=== PATIENT | female | born 1955 | race Caucasian/White ===

== ENCOUNTER 2016-12-21 12:30 | Emergency (ER) | payer OTHER ==
[2016-12-21] MEDS ORDERED: PROPARACAINE 0.5% OPHTH DROPS 15 ML ONE (12:44)
[2016-12-21] MEDS ORDERED: ERYTHROMYCIN OPHTH OINT 1 GM TUBE LEFTEYE STA (13:14)
[2016-12-21] MEDS ORDERED: PROPARACAINE 0.5% OPHTH DROPS 15 ML LEFTEYE STA (13:14)
--- NOTE | 2016-12-21 13:18 | ED Physician Documentation ---
PD HPI OPHTHO - Stated complaint Stated Complaint: L EYE PX - Chief complaint Chief Complaint: Heent - History obtained from History obtained from: Patient - History of Present Illness Timing - onset: Other (Foreign body sensation to the left eye last night and worsening pain today with some light sensitivity, but no significant visual change. She is not a contact lens wear.) Review of Systems Constitutional: denies: Fever, Chills Eyes: reports: Photophobia, Discharge, Irritation. denies: Loss of vision, Decreased vision Ears: denies: Loss of hearing, Ear pain Nose: reports: Rhinorrhea / runny nose PD PAST MEDICAL HISTORY - Past Medical History Past Medical History: No - Past Surgical History Past Surgical History: Yes - Present Medications Home Medications: Ambulatory Orders Medication Instructions Recorded Confirmed No Known Home Medications [No 12/21/16 12/21/16 Known Home Medications] - Allergies Allergies/Adverse Reactions: Allergies Allergy/AdvReac Type Severity Reaction Status Date / Time cephalexin monohydrate * Allergy Nausea Verified 12/21/16 12:40 [From Keflex] - Social History Does the pt smoke?: No Smoking Status: Never smoker Does the pt drink ETOH?: Yes Does the pt have substance abuse?: No - Immunizations Immunizations: TDAP >10years/unknown PD ED PE NORMAL - Vitals Vital signs reviewed: Yes - General General: Alert and oriented X 3, No acute distress - HEENT HEENT: PERRL, EOMI, Other (Left eye looks grossly normal with midpoint reactive pupils, on fluorescein examination there are innumerable vertical linear scratches on the superior part of the cornea consistent with a corneal foreign body in the upper fornix. However repeated examination of that area did not demonstrate a foreign body. Tyron-Pen pressure was borderline at 28. She had complete relief with proparacaine.) - Neck Neck: Supple, no meningeal sign, No bony TTP - Neuro Neuro: Alert and oriented X 3, Normal speech Results - Vitals Vitals: Vital Signs - 24 hr 12/21/16 12/21/16 12:37 13:25 Temperature 36.8 C Heart Rate 72 77 Respiratory 18 18 Rate Blood Pressure 159/82 H 144/82 H O2 Saturation 100 100 Departure - Departure Disposition: 01 Home, Self Care Clinical Impression: Corneal abrasion Qualifiers: Encounter type: initial encounter Laterality: left Qualified Code(s): S05.02XA - Injury of conjunctiva and corneal abrasion without foreign body, left eye, initial encounter Condition: Good Record reviewed to determine appropriate education?: Yes Instructions: ED Eye Injury Corneal Abrasion Comments: Put the antibiotic in 5 times a day for the next few days. Return if not better in 24 hours. Otherwise follow-up with your eye doctor in 2 weeks as scheduled, mentioned to him/her that you have borderline eye pressures in the mid 20s and this mandates a recheck. Your blood pressure was elevated today on check into the emergency department. This does not mean that you have hypertension, it is a common phenomenon to come to the emergency department and have elevated blood pressure. I recommend that she see her primary care physician within the week to have it rechecked when you are feeling better. Discharge Date/Time: 12/21/16 13:25
[2016-12-21] MEDS ORDERED: ERYTHROMYCIN OPHTH OINT 1 GM TUBE ONE ×2 (13:19)
[2016-12-21 13:26] VITALS: BP 144/82
== END 2016-12-21 13:25 | disposition home or self-care (01) ==
LOC: ED 12:30
DX: S05.02XA Injury of conjunctiva and corneal abrasion without foreign body, left eye, initial encounter (principal); X58.XXXA Exposure to other specified factors, initial encounter
CPT/HCPCS: 99283; J3490

== ENCOUNTER 2020-12-13 11:30 | Outpatient (CLI) | payer MEDICARE, OTHER ==
--- NOTE | 2020-12-13 13:00 | DEXA Report ---
PROCEDURE: Dexa Spine and/or Hip INDICATIONS: OSTEOPOROSIS TECHNIQUE: Dual energy x-ray absorptiometry (DXA) was performed on a CITIA System. Regions measur ed are the AP Spine, femoral neck, and if needed forearm. COMPARISON: None. FINDINGS: Lumbar Spine: Bone Mineral Density 1.147 g/cm/cm,T score -0.3, normal Left Hip: Bone Mineral Density 0.972 g/cm/cm,T score -0.3, normal Left Femoral Neck: Bone Mineral Density 0.872 g/cm/cm, T score -1.2, osteopenia (T score greater or equal to -1.0: NORMAL) (T score from -1.1 to -2.4: OSTEOPENIA) (T score less than or equal to -2.5 to: OSTEOPOROSIS) Impression: Normal bone mineral density at the lumbosacral spine and left hip overall but there is mi ld osteopenia at the left femoral neck. Patients with diagnosis of osteoporosis or osteopenia should have regular bone mineral density assess ment. For those eligible for Medicare, routine testing is allowed once every 2 years. Testing frequ ency can be increased for patients who have rapidly progressing disease or for those who are receivin g medical therapy to restore bone mass. Reviewed by: Kurt Clinton MD on 12/13/2020 12:59 PM PDT Approved by: Kurt Clinton MD on 12/13/2020 12:59 PM PDT Station ID: [id number]
== END 2020-12-13 11:31 | disposition home or self-care (01) ==
LOC: DI 11:30
PROVIDERS: ATTEND Family Medicine
DX: Z13.820 Encounter for screening for osteoporosis (principal); M85.88 Other specified disorders of bone density and structure, other site

== ENCOUNTER 2021-09-13 11:58 | Emergency (ER) | payer MEDICARE ==
--- OUTSIDE RECORDS SUMMARY | 2021-09-13 12:18 | EXTERNAL MEDICAL SUMMARY RPT | Continuity of Care Document ---
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 Encounters No information. Medications No information. Problems date description facility [id number] Unspecified fall, initial encounter [facility] [place] [id number] Unspecified fall [facility] Care & Ancillary [facility] [id number] Tobacco smoking status NHIS [facility] Primary Care & Ancillary Services [facility] [id number] Other abnormalities of gait and [facility] [id number] Fall [facility] Care & Ancillary Services [facility] [id number] Exercise [facility] Care & Ancillary Services [facility] [id number] Details of drug misuse behavior [facility] [id number] Alcohol use [facility] Care & Ancillary Services [facility] [id number] Abnormality of gait [facility] Care & Ancillary Services [facility] [id number] Abnormal gait due to impairment of [facility] Primary Care & balance Ancillary Services [facility] Results No information. Vital Signs date measurement value source [id number] weight_standard 162 lb [id number] weight_metric 73.48 kg [id number] temperature_standard 97.7 F [id number] temperature_metric 36.5 C 20210912 respiration_rate 16 /min [id number] height_standard 67 in [id number] height_metric 170.18 cm [id number] heart_rate 77 /min [id number] BP_systolic 150 mm[Hg] [id number] BP_diastolic 87 mm[Hg] [id number] BMI 25.46 kg/m2
--- NOTE | 2021-09-13 12:30 | ED Physician Documentation ---
History of Present Illness - Stated complaint Stated Complaint: VERTIGO - Chief complaint Chief Complaint: Neuro - History obtained from History obtained from: Patient - History of Present Illness Timing: Today Pain level max: 0 Pain level now: 0 - Additonal information Additional information: Patient is a 66-year-old female who presents to the emergency department complaint of near syncope 2 days ago. She states that she was walking back from the bathroom when she nearly fell to the floor. She states she did not lose consciousness. No chest pain or shortness of breath, but since that time she has felt off balance and has had trouble walking. She states it feels like prior episodes of vertigo. Worse with movement, better with rest. No headache. No nausea or vomiting Review of Systems Constitutional: denies: Fever Nose: denies: Rhinorrhea / runny nose, Congestion Throat: denies: Sore throat Respiratory: denies: Dyspnea, Cough GI: denies: Abdominal Pain, Nausea, Vomiting, Diarrhea : denies: Dysuria Skin: denies: Rash Musculoskeletal: denies: Neck pain, Back pain Neurologic: denies: Focal weakness, Numbness, Seizure, Confused PD PAST MEDICAL HISTORY - Past Medical History Past Medical History: No - Past Surgical History Past Surgical History: Yes - Present Medications Home Medications: Ambulatory Orders Medication Instructions Recorded Confirmed No Known Home Medications 12/21/16 09/13/21 - Allergies Allergies/Adverse Reactions: Allergies Allergy/AdvReac Type Severity Reaction Status Date / Time cephalexin monohydrate * Allergy Nausea Verified 09/13/21 12:06 [From Imonomi] - Living Situation Living Situation: reports: With family Living Arrangement: reports: At home - Social History Does the pt smoke?: No Smoking Status: Never smoker Does the pt drink ETOH?: Yes Does the pt have substance abuse?: No - Immunizations Immunizations: TDAP >10years/unknown PD ED PE NORMAL - Vitals Vital signs reviewed: Yes - General General: Alert and oriented X 3, No acute distress - HEENT HEENT: Atraumatic, PERRL, Moist mucous membranes - Neck Neck: Supple, no meningeal sign, No bony TTP - Cardiac Cardiac: RRR, Strong equal pulses - Respiratory Respiratory: No respiratory distress, Clear bilaterally - Abdomen Abdomen: Soft, Non tender, Non distended - Derm Derm: Warm and dry - Extremities Extremities: No edema, No calf tenderness / cord - Neuro Neuro: Alert and oriented X 3, 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, No motor deficit, No sensory deficit, Normal speech, Other (normal cerebellar tests, off balance gait.) - Psych Psych: Normal mood, Normal affect Results - Vitals Vitals: Vital Signs - 24 hr 09/13/21 09/13/21 12:07 14:14 Temperature 36.6 C Heart Rate 64 72 Respiratory 19 12 Rate Blood Pressure 186/85 H 135/85 H O2 Saturation 100 100 Oxygen O2 Source Room air - EKG (time done) 1228 Rate: Rate (enter#) (67) Rhythm: NSR [place]: Normal Intervals: Normal [place] QRS: Normal, LVH Ischemia: T wave inversion (III) - Labs Labs: Laboratory Tests 09/13/21 09/13/21 09/13/21 12:36 12:36 12:36 WBC 5.9 RBC 4.48 Hgb 13.7 Hct 41.4 MCV 92.4 MCH 30.6 MCHC 33.1 RDW 12.8 Plt Count 215 MPV 10.4 Neut # (Auto) 4.1 Lymph # (Auto) 1.4 L [place] # (Auto) 0.3 Eos # (Auto) 0.0 Baso # (Auto) 0.0 Absolute Nucleated RBC 0.00 Nucleated RBC % 0.0 Sodium 139 Potassium 4.4 Chloride 100 L Carbon Dioxide 28 Anion Gap 11.0 BUN 17 Creatinine 0.8 Estimated GFR (MDRD) 71 L Glucose 101 H Calcium 9.5 Total Bilirubin 0.9 AST 38 ALT 22 Alkaline Phosphatase 56 Troponin I High Sens 4.4 Total Protein 7.1 Albumin 4.1 Globulin 3.0 Albumin/Globulin Ratio 1.4 Lipase 28 - Rads (name of study) CTA head Radiology: Final report received, EMP read contemporaneously, See rad report CTA neck Radiology: Final report received, EMP read contemporaneously, See rad report MRI brain Radiology: Final report received, EMP read contemporaneously, See rad report PD MEDICAL DECISION MAKING - ED course Complexity details: reviewed results, re-evaluated patient, considered differential, d/w patient ED course: 66-year-old female with near syncope and vertigo. No nystagmus on exam. concern for potential posterior stroke. CT angiogram head and neck did not show any acute abnormalities. MRI of the brain does not show any abnormalities. Does have a partially opacified left vallecula, she will follow up with the ENT for this. Patient is ambulating well in the emergency department. No significant lab abnormalities. She will trial meclizine at home and see if this helps her symptoms. Patient counseled regarding signs and symptoms for which I believe and urgent re-evaluation would be necessary. Patient with good understanding of and agreement to plan and is comfortable going home at this time This document was made in part using voice recognition software. While efforts are made to proofread this document, sound alike and grammatical errors may occur. NIH stroke scale of 0 CT angiogram head: IMPRESSION: 1. No acute intracranial disease process. 2. No large vessel occlusion, vascular stenosis, vascular dissection or aneurysm. CT Angiogram neck: IMPRESSION: 1. No vascular occlusion, vascular stenosis, vascular dissection or aneurysm. 2. 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 3. Partially opacified left vallecula. Recommend correlation with direct visualization to exclude mucosal-based mass. MRI Brain: IMPRESSION: Age-appropriate findings. Age-related volume loss and mild small vessel ischemic change. No evidence acute stroke, image, or mass. Departure - Departure Disposition: 01 Home, Self Care Clinical Impression: Vertigo Condition: Good Instructions: Meclizine, ED Vertigo Unspecified Follow-Up: CATHERINE PARNELL MD [Primary Care Provider] - Within 1 week Comments: Please follow-up with your doctor for further care. Return if you worsen. You can try meclizine at home to help with your vertigo symptoms. Your CT angiogram of your head and neck do not show any acute abnormalities, your brain MRI does not show any acute abnormalities either. You do have a partially opacified area in the left vallecula, this is in your throat, your doctor can refer you to ENT for a visual inspection of the area. You also have a short segment fibromuscular dysplasia of the middle cervical segments of the internal carotid arteries bilaterally, you can follow-up with your doctor regarding this as well. CT angiogram head: IMPRESSION: 1. No acute intracranial disease process. 2. No large vessel occlusion, vascular stenosis, vascular dissection or aneurysm. CT Angiogram neck: IMPRESSION: 1. No vascular occlusion, vascular stenosis, vascular dissection or aneurysm. 2. 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 3. Partially opacified left vallecula. Recommend correlation with direct visualization to exclude mucosal-based mass. MRI Brain: IMPRESSION: Age-appropriate findings. Age-related volume loss and mild small vessel ischemic change. No evidence acute stroke, image, or mass. Discharge Date/Time: 09/13/21 15:34
[2021-09-13 12:40] LABS: BASOPHILS % (AUTO) 0.3 %; EOSINOPHILS % (AUTO) 0.3 %; HCT - HEMATOCRIT 41.4 % (37.0-47.0); HGB - HEMOGLOBIN 13.7 g/dL (12.0-16.0); LYMPHOCYTES # (AUTO) 1.4 10^3/uL (1.5-3.5); LYMPHOCYTES % (AUTO) 24.1 %; MEAN CORPUSCULAR HEMOGLOBIN 30.6 pg (27.0-31.0); MEAN CORPUSCULAR HGB CONC 33.1 g/dL (32.0-36.0); MEAN CORPUSCULAR VOLUME 92.4 fL (81.0-99.0); MEAN PLATELET VOLUME 10.4 fL (7.9-10.8); MONOCYTES # (AUTO) 0.3 10^3/uL (0.0-1.0); MONOCYTES % (AUTO) 5.8 %; NEUTROPHILS # (AUTO) 4.1 10^3/uL (1.5-6.6); NEUTROPHILS % (AUTO) 69.3 %; PLT - PLATELET COUNT 215 10^3/uL (130-450); RED BLOOD COUNT 4.48 10^6/uL (4.20-5.40); RED CELL DISTRIBUTION WIDTH 12.8 % (12.0-15.0); WHITE BLOOD COUNT 5.9 x10^3/uL (4.8-10.8)
[2021-09-13] MEDS ORDERED: IOVERSOL 320 100 ML VIAL IVP ONE ×2 (12:45→14:24)
--- NOTE | 2021-09-13 12:56 | XRAY Report ---
PROCEDURE: Chest 1 View X-Ray INDICATIONS: Chest Pain TECHNIQUE: One view of the chest was acquired. COMPARISON: None FINDINGS: Surgical changes and devices: None. Lungs and pleura: No pleural effusions or pneumothorax. Lungs are clear. Mediastinum: Mediastinal contours appear normal. Heart size is enlarged. Bones and chest wall: No suspicious bony lesions. Overlying soft tissues appear unremarkable. IMPRESSION: No acute pulmonary process. Reviewed by: Anai Thomas MD on 09/13/2021 12:55 PM PDT Approved by: Anai Thomas MD on 09/13/2021 12:55 PM PDT Station ID: [id number]
[2021-09-13 13:15] LABS: ALBUMIN 4.1 g/dL (3.2-5.5); ALBUMIN/GLOBULIN RATIO 1.4 (1.0-2.2); BILIRUBIN,TOTAL 0.9 mg/dL (0.2-1.0); CALCIUM 9.5 mg/dL (8.5-10.3); CREATININE 0.8 mg/dL (0.4-1.0); POTASSIUM 4.4 mmol/L (3.5-5.0); TOTAL PROTEIN 7.1 g/dL (6.7-8.2)
--- NOTE | 2021-09-13 13:34 | MRI Report ---
PROCEDURE: Brain W/O INDICATIONS: vertigo, near syncope TECHNIQUE: Noncontrast axial T1 spin echo, axial T2 fast spin echo, sagittal and axial FLAIR, coronal T2 fast sp in echo, axial gradient echo, axial diffusion and ADC through the brain. COMPARISON: None. FINDINGS: Image quality: Excellent. CSF Spaces: Basal cisterns are patent. No extra-axial fluid collections. Ventricles are normal in size and shape. Brain: No intracranial masses or hemorrhage. Ward/white matter interface is normal. Brainstem appe ars normal. Diffusion-weighted images demonstrate no acute ischemic insult. No chronic ischemic ins ults. Mild age-related small vessel ischemic change. Normal intravascular flow voids are present. Skull and face: Calvarium has normal marrow signal. Orbits appear normal. Sinuses: Left maxillary sinus mucus retention cyst. Sinuses and mastoids are otherwise clear. IMPRESSION: Age-appropriate findings. Age-related volume loss and mild small vessel ischemic change. No evidence acute stroke, image, or mass. Reviewed by: Richard Gill MD on 09/13/2021 1:32 PM PDT Approved by: Richard Gill MD on 09/13/2021 1:32 PM PDT Station ID: [id number]
--- NOTE | 2021-09-13 14:21 | CT Report ---
PROCEDURE: ANGIO HEAD W/WO INDICATIONS: near syncope, vertigo CONTRAST: IV CONTRAST: Optiray 320 ml: 80 PO CONTRAST: *NO PO CONTRAST TECHNIQUE: Precontrast 4.5 mm thick angled axial sections acquired from the foramen magnum to the vertex. Afte r the administration of intravenous contrast, 1 mm thick sections acquired through the [place] of [place] is. Postcontrast 4.5 mm thick sections then re-acquired from the foramen magnum to the vertex. 3-di mensional [id number] (MIP) and/or volume rendering reformats were acquired of the c entral intracranial vasculature. For radiation dose reduction, the following was used: automated ex posure control, adjustment of mA and/or kV according to patient size. COMPARISON: MRI brain 09/13/2021. FINDINGS: Image quality: Excellent. Anterior circulation: Intracranial internal carotid arteries are normal in size and flow. The flow within the paired anterior cerebral arteries is normal and symmetric. The flow within the middle cer ebral arteries is normal and symmetric. The anterior communicating artery is seen. No aneurysms are seen. Posterior circulation: Visualized portions of the vertebral arteries demonstrate normal caliber, and join to form a normal appearing basilar artery. Flow within the posterior cerebral arteries is norm al and symmetric. No aneurysms are seen. Dural sinuses demonstrate normal postcontrast enhancement. CSF spaces: Ventricles are normal in size and shape. Basal cisterns are patent. No extra-axial flu id collections. Brain: No midline shift. No intracranial bleeds or masses. Ward-white matter interface appears int act. Skull and face: Calvarium and facial bones appear intact, without suspicious lesions. Sinuses: Mucous retention cyst noted in the left maxillary sinus. The mastoids are clear. IMPRESSION: 1. No acute intracranial disease process. 2. No large vessel occlusion, vascular stenosis, vascular dissection or aneurysm. Reviewed by: Sravani Cornejo MD, PhD on 09/13/2021 2:19 PM PDT Approved by: Sravani Cornejo MD, PhD on 09/13/2021 2:19 PM PDT Station ID: [id number]
--- NOTE | 2021-09-13 14:29 | CT Report ---
PROCEDURE: ANGIO NECK W INDICATIONS: near syncope, vertigo CONTRAST: IV CONTRAST: Optiray 320 ml: 80 PO CONTRAST: *NO PO CONTRAST TECHNIQUE: After the administration of intravenous contrast, 1.5 mm axial sections acquired from the aortic arch to the [place] of [place]. Coronal 3-D maximum intensity projection (MIP) and/or volume rendering ref ormats were then performed. For radiation dose reduction, the following was used: automated exposur e control, adjustment of mA and/or kV according to patient size. COMPARISON: None. FINDINGS: Image quality: Excellent. Carotid system: The great vessels demonstrate a conventional anatomy as they arise from the aortic a [facility]. The origins of the common carotid arteries appear patent. The common carotid arteries demonstr ate normal calibers and courses. The bifurcation regions appear normal bilaterally. The internal ca rotid arteries demonstrate normal caliber and course. Short segment, minimal, alternating stenoses an d dilatations noted on the mid cervical segments of the internal carotid arteries bilaterally compati ble with fibromuscular dysplasia. Posterior circulation: The origins of the vertebral arteries appear patent. The more superior porti ons of the vertebral arteries demonstrate normal course and caliber. They join to form a normal appe aring basilar artery. Soft tissues: Left vallecula is partially opacified which could be due to mucosal-based mass versus p hlegm. Pleural-parenchymal scarring noted in the lung apices. Large mucous retention cyst noted in th e left maxillary sinus. Moderate retention cyst noted in the left sphenoid sinus. The thyroid is nor mal in size and there are no incidental findings. Bones: No suspicious bony lesions. Spine degenerative disc disease and facet arthropathy are noted. Visualized cervical spine appears normally aligned. IMPRESSION: 1. No vascular occlusion, vascular stenosis, vascular dissection or aneurysm. 2. Short segment fibromuscular dysplasia involving the middle cervical segments of the internal carot id arteries bilaterally. 3. Partially opacified left vallecula. Recommend correlation with direct visualization to exclude muc osal-based mass. The estimate of stenosis included in the report of the imaging study was calculated using the NASCET method Reviewed by: Sravani Cornejo MD, PhD on 09/13/2021 2:28 PM PDT Approved by: Sravani Cornejo MD, PhD on 09/13/2021 2:28 PM PDT Station ID: [id number]
[2021-09-13 14:30] VITALS: BP 135/85
== END 2021-09-13 15:34 | disposition home or self-care (01) ==
LOC: ED 11:58
DX: R55 Syncope and collapse (principal)
CPT/HCPCS: 36415; 70496; 70498; 70551; 71045; 80053; 83690; 84484; 85025; 93005; 99284; Q9967

== ENCOUNTER 2022-01-14 08:00 | Outpatient (CLI) | payer MEDICARE ==
[2022-01-14 15:27] LABS: BILIRUBIN,URINE NEGATIVE (NEGATIVE); GLUCOSE, URINE (UA) NEGATIVE (NEGATIVE); KETONES,URINE (UA) NEGATIVE (NEGATIVE); LEUKOCYTE ESTERASE, URINE SMALL (NEGATIVE); NITRITE,URINE NEGATIVE (NEGATIVE); OCCULT BLOOD,URINE TRACE-INTA (NEGATIVE); PROTEIN,URINE NEGATIVE (NEGATIVE); UROBILINOGEN,URINE 0.2 (NORMAL) E.U./dL (NORMAL)
[2022-01-14 16:22] LABS: BACTERIA,URINE Many /HPF (None Seen); CLARITY,URINE CLEAR (CLEAR); RBC,URINE 0-5 /HPF (0-5); SQUAMOUS EPITHELIAL CELL,UR MANY Squamous (<= Few)
== END 2022-01-14 23:59 | disposition home or self-care (01) ==
LOC: LAB.S 08:00
PROVIDERS: ATTEND Emergency Medicine
DX: N30.00 Acute cystitis without hematuria (principal)
CPT/HCPCS: 81001; 87086